=== PATIENT | female | born 1955 | race Asian ===

== ENCOUNTER 2017-07-07 12:05 | Emergency (ER) | payer OTHER ==
[~2017-07-07] VITALS: Ht 162.6 cm; Wt 61.2 kg
[~2017-07-07 12:05] MED LIST: LISI2.5T47 PO; SERT-275 PO
[2017-07-07] MEDS ORDERED: HYDROmorphone HCL 2 MG/ML VL IV ONE (12:30)
[2017-07-07] MEDS ORDERED: ONDANSETRON HCL 4 MG/2 ML VIAL IV ONE (12:30)
[2017-07-07] MEDS ORDERED: LORazepam 2MG/ML-1ML VIAL IV ONE (12:30)
[2017-07-07] MEDS ORDERED: METOCLOPRAMIDE HCL 5MG/ml INJ 2ml VIAL IV ONE (13:45)
[2017-07-07 14:17] VITALS: BP 119/74
== END 2017-07-07 13:57 | disposition home or self-care (01) ==
LOC: ER 12:05 → EDBD 12:05 → ER 13:57
DX: S43.004A Unspecified dislocation of right shoulder joint, initial encounter (principal); W19.XXXA Unspecified fall, initial encounter; Y93.89 Activity, other specified; Y99.8 Other external cause status; Y92.89 Other specified places as the place of occurrence of the external cause
CPT/HCPCS: 23650; 73020; 73030; 94761; 96374; 96375; 99284; J1170; J2060; J2765

== ENCOUNTER 2017-07-16 04:09 | Emergency (ER) | payer OTHER ==
[~2017-07-16] VITALS: Ht 160 cm; Wt 56.7 kg
[2017-07-16] MEDS ORDERED: SODIUM CHLORIDE 0.9% 500 ML IV ONE (04:15)
[2017-07-16] MEDS ORDERED: ONDANSETRON HCL 4 MG/2 ML VIAL IV ONE (04:15)
[2017-07-16] MEDS ORDERED: MORPHINE SULFATE 4 MG/ML SYR/VIAL IV ONE (04:15)
[2017-07-16] MEDS ORDERED: fentaNYL CITRATE 100 MCG/2 ML VL ONE (04:37)
[2017-07-16] MEDS ORDERED: ETOMIDATE (2MG/ML) 20ML VIAL IV ONE (04:45)
[2017-07-16] MEDS ORDERED: fentaNYL CITRATE 100 MCG/2 ML VL IV ONE (04:45)
[2017-07-16 04:52] VITALS: BP 173/86
[2017-07-16] MEDS ORDERED: HYDROcodone-ACET 5/325MG TAB PO ONE (06:00)
== END 2017-07-16 06:12 | disposition home or self-care (01) ==
LOC: EDBD 04:09 → ER 04:13 → MERGE 04:13 → ER 06:12
DX: S43.014A Anterior dislocation of right humerus, initial encounter (principal); I10 Essential (primary) hypertension; X58.XXXA Exposure to other specified factors, initial encounter; Y93.89 Activity, other specified; Y99.8 Other external cause status; Y92.89 Other specified places as the place of occurrence of the external cause
CPT/HCPCS: 23650; 73020; 73030; 99152; 99285; J3010; J7040

== ENCOUNTER 2018-02-18 09:20 | Emergency (ER) | payer OTHER ==
[~2018-02-18] VITALS: Ht 162.6 cm; Wt 54.4 kg
[2018-02-18 10:31] VITALS: BP 102/62
== END 2018-02-18 12:17 | disposition home or self-care (01) ==
LOC: EDBD 09:20 → ER 09:23
DX: S42.141A Displaced fracture of glenoid cavity of scapula, right shoulder, initial encounter for closed fracture (principal); I10 Essential (primary) hypertension; Z90.49 Acquired absence of other specified parts of digestive tract; Z90.89 Acquired absence of other organs; Z88.1 Allergy status to other antibiotic agents; X58.XXXA Exposure to other specified factors, initial encounter; Y93.89 Activity, other specified; Y99.8 Other external cause status; Y92.89 Other specified places as the place of occurrence of the external cause
CPT/HCPCS: 73030; 99283; J7030

== ENCOUNTER 2019-04-12 13:51 | Emergency (ER) | payer OTHER ==
[~2019-04-12] VITALS: Ht 162.6 cm; Wt 56.7 kg
[2019-04-12] MEDS ORDERED: HYDROcodone-ACET 10/325MG TAB PO ONE (14:30)
[2019-04-12 17:27] VITALS: BP 135/63
== END 2019-04-12 17:38 | disposition home or self-care (01) ==
LOC: EDBD 13:51 → ER 13:51
DX: S43.004A Unspecified dislocation of right shoulder joint, initial encounter (principal); I10 Essential (primary) hypertension; Z90.49 Acquired absence of other specified parts of digestive tract; Z90.710 Acquired absence of both cervix and uterus; Z88.1 Allergy status to other antibiotic agents; W01.0XXA Fall on same level from slipping, tripping and stumbling without subsequent striking against object, initial encounter; Y93.89 Activity, other specified; Y99.8 Other external cause status; Y92.89 Other specified places as the place of occurrence of the external cause
CPT/HCPCS: 23650; 73030

== ENCOUNTER → 2019-08-29 | Emergency (ER) | payer OTHER ==
[~2019-08-29] VITALS: Ht 167.6 cm; Wt 59.0 kg
[~2019-08-29] MED LIST changes: +MIDAZOLAM HCL 5 MG/ML-1ML VIAL IV ONE; +fentaNYL CITRATE 100 MCG/2 ML VL IV ONE
[2019-08-29 08:20] VITALS: BP 129/84
== END | disposition home or self-care (01) ==
LOC: EDUNIT# 06:37 → ER 06:45 → EDBD 06:45
DX: S43.084A Other dislocation of right shoulder joint, initial encounter (principal); M21.821 Other specified acquired deformities of right upper arm; I10 Essential (primary) hypertension; F32.9 Major depressive disorder, single episode, unspecified; K21.9 Gastro-esophageal reflux disease without esophagitis; X50.9XXA Other and unspecified overexertion or strenuous movements or postures, initial encounter; Y93.89 Activity, other specified; Y92.89 Other specified places as the place of occurrence of the external cause; Y99.8 Other external cause status
CPT/HCPCS: 23650; 73020; 73030; 99152; 99285; J2250

== ENCOUNTER 2021-04-23 05:14 | Emergency (ER) | payer OTHER ==
[~2021-04-23] VITALS: Ht 162.6 cm; Wt 56.7 kg
[~2021-04-23 05:14] MED LIST changes: -MIDAZOLAM HCL 5 MG/ML-1ML VIAL IV ONE; -SERT-275 PO; +SERT25TA14 PO; -fentaNYL CITRATE 100 MCG/2 ML VL IV ONE
[2021-04-23] MEDS ORDERED: IBUPROFEN 600 MG TAB PO ONE (06:30)
[2021-04-23] MEDS ORDERED: IBU600T PO (07:01)
[2021-04-23 08:00] VITALS: BP 109/60
== END 2021-04-23 08:28 | disposition home or self-care (01) ==
LOC: ER 05:14 → EDBD 05:14 → EDUNIT# 05:14 → ER 08:28
DX: S42.291A Other displaced fracture of upper end of right humerus, initial encounter for closed fracture (principal); I10 Essential (primary) hypertension; Z90.49 Acquired absence of other specified parts of digestive tract; Z90.89 Acquired absence of other organs; X50.0XXA Overexertion from strenuous movement or load, initial encounter; Y93.89 Activity, other specified; Y92.89 Other specified places as the place of occurrence of the external cause; Y99.8 Other external cause status
CPT/HCPCS: 73030

== ENCOUNTER 2021-08-05 05:03 | Emergency (ER) | payer OTHER ==
[~2021-08-05] VITALS: Ht 162.6 cm; Wt 51.7 kg
[~2021-08-05 05:03] MED LIST changes: +IBU600T PO
[2021-08-05 11:22] VITALS: BP 113/56
== END 2021-08-05 11:22 | disposition home or self-care (01) ==
LOC: EDBD 05:03 → ER 05:03
DX: S43.014A Anterior dislocation of right humerus, initial encounter (principal); I10 Essential (primary) hypertension; Z90.49 Acquired absence of other specified parts of digestive tract; Z90.89 Acquired absence of other organs; Z88.1 Allergy status to other antibiotic agents; X58.XXXA Exposure to other specified factors, initial encounter; Y93.89 Activity, other specified; Y92.89 Other specified places as the place of occurrence of the external cause; Y99.8 Other external cause status
CPT/HCPCS: 23650; 73030